=== PATIENT | female | born 1950 | race Hispanic/Latino ===

== ENCOUNTER 2017-12-21 14:45 | Emergency (ER) | payer MEDICARE, SELFPAY ==
[2017-12-21] MEDS ORDERED: Ondansetron PF 4 MG/2 ML Vial ONE (15:18)
[2017-12-21] MEDS ORDERED: Morphine 4 MG/ML Carpuject ONE (15:18)
[2017-12-21 15:33] LABS: INR-International Normal Ratio 1.3; PTT 28.1 SEC (22.9-36.1); Prothrombin Time 15.8 SEC (12.0-14.7)
[2017-12-21 15:42] LABS: ALT (SGPT) 16 U/L (8-55); AST (SGOT) 80 U/L (5-34); Albumin 2.7 g/dL (3.4-4.8); Alkaline Phosphatase 401 U/L (40-150); Anion Gap 14 mmol/L (10-20); BUN (Urea Nitrogen) 7 mg/dL (9.8-20.1); Bilirubin, Direct 6.1 mg/dL (0.1-0.3); Bilirubin, Total 8.4 mg/dL (0.2-1.2); Calc. Creatinine Clearance 0 mL/min (70-130); Calcium 8.4 mg/dL (7.8-10.44); Carbon Dioxide 22 mmol/L (23-31); Chloride 101 mmol/L (98-107); Estimated GFR-MDRD Greater than 90; Globulin 3.7 g/dL (2.4-3.5); Glucose 164 mg/dL (80-115); Lipase 35 U/L (8-78); Potassium 3.7 mmol/L (3.5-5.1); Protein, Total 6.4 g/dL (6.0-8.3); Sodium 133 mmol/L (136-145)
[2017-12-21 15:47] LABS: #Basophils 0.1 thou/uL (0.0-0.2); #Eosinphils 0.1 thou/uL (0.0-0.7); #Lymphocytes 0.6 thou/uL (1.20-3.40); #Monocytes 0.4 thou/uL (0.11-0.59); #Neutrophils 5.1 thou/uL (1.40-6.50); %Basophils 0.9 % (0.0-1.0); %Lymphocytes 10.1 % (21.0-51.0); %Monocytes 5.8 % (0.0-10.0); %Neutrophils 82.2 % (42.0-75.0); Hemoglobin 10.2 g/dL (12.0-16.0); MDiff Complete? YES; Macrocytosis SLIGHT = 6-15 cells (100X) (0-5/hpf); Mean Corpuscular HGB CONC 33.5 g/dL (32.0-36.0); Mean Corpuscular Hemoglobin 33.5 pg (27.0-31.0); Mean Corpuscular Volume 99.8 fL (78.0-98.0); Mean Platelet Volume 8.6 fL (7.4-10.4); PLT Morphology Comment Appears Decreased; Platelet Count 76 thou/uL (130-400); Polychromasia SLIGHT = 2-3 cells (100X) (0-2/hpf); RBC Distribution Width 12.7 % (11.5-14.5); Red Blood Cell (RBC) Count 3.04 mill/uL (4.20-5.40); White Blood Cell (WBC) Count 6.2 thou/uL (4.8-10.8)
--- NOTE | 2017-12-21 17:09 | CT ---
CT OF ABDOMEN AND PELVIS PERFORMED WITH INTRAVENOUS CONTRAST ENHANCEMENT: 12/21/17 HISTORY: Three day history of abdominal pain and distention. Patient has a history of liver cancer. Receiving chemo in [place]. COMPARISON: None. There are innumerable bilateral lower lobe pulmonary nodules. Many of these are large, measuring in t he 2 to 2.5 cm range. The liver shows multiple masses and also has a cirrhotic appearance. There is m arked splenomegaly present. There is evidence of extensive varices. There is lymphadenopathy that bas ically begins in the berto region and extends inferiorly to below the level of the right kidney being along the anterior margin of the IVC and there is lymphadenopathy which is directly superior to the pancreas. This measures 4.1 cm in diameter and greater than 10 cm in overall length. Right and left adrenal glands and right and left kidneys are normal in size. There is mild ascites pr esent. CT OF PELVIS PERFORMED WITH CONTRAST ENHANCEMENT: There is moderate ascites present within the pelvis. Appendix region appears unremarkable. No adenopa thy or mass. Review of osseous structures show no lytic or blastic bony changes. IMPRESSION: 1. Cirrhotic appearing liver with splenomegaly and extensive varices. 2. Multiple liver masses. This could represent multifocal hepatocellular carcinoma but could rep resent metastatic disease. There is also extensive adenopathy which basically extends from the portal region. There are innumerable bilateral lower lobe pulmonary nodules consistent with metastatic dise ase. 3. Mild to moderate ascites. 4. Postop cholecystectomy change. POS: [facility]
== END 2017-12-21 19:36 | disposition home or self-care (01) ==
LOC: SCSER 14:45
DX: C78.7 Secondary malignant neoplasm of liver and intrahepatic bile duct (principal); R18.8 Other ascites; E80.6 Other disorders of bilirubin metabolism; E11.9 Type 2 diabetes mellitus without complications; E03.9 Hypothyroidism, unspecified; I10 Essential (primary) hypertension; Z79.899 Other long term (current) drug therapy; Z79.4 Long term (current) use of insulin
CPT/HCPCS: 74177; 80053; 80076; 83690; 85025; 85610; 85730; 96374; 96375; J2270; J2405